=== PATIENT | male | born 1970 | race Caucasian/White ===

== ENCOUNTER 2024-09-08 09:07 | Outpatient (AMB) | payer OTHER, SELFPAY ==
--- OUTSIDE RECORDS SUMMARY | 2024-09-08 09:09 | XMS_ITS | Clinical Summary ---
Author Organization [employer] Address [address] [facility] [address] [place] [address] Care Team Providers Care Incident Response Consultant Name Role Phone Unavailable Primary Care Provider Unavailabl e Allergies Active Allergy Reactions Criticality Noted Date Comments Meloxicam Swelling,Hives 09/16/2022 Sulfa Antibiotics Hives,Unknown,Other 4 Other Reaction(s): Tongue swelling Medications omeprazole (PriLOSEC) [address] capsule Take 20 mg by mouth in the morning. 03/24/2022 Active ciprofloxacin (Cipro) 500 MG tablet Take 500 mg by mouth 2 times daily. 09/12/2022 Active metroNIDAZOLE (Flagyl) 500 MG tablet Take 500 mg by mouth every 12 (twelve) hours. 09/12/2022 Active famotidine (Pepcid) 0.4 mg/mL injection Acti ve fluticasone (Flonase) 50 MCG/ACT nasal spray SPRAY 2 SPRAYS IN EACH NOSTRIL EVERY DAY 08/22/2023 Active atorvastatin (Lipitor) 10 MG tablet Take 1 tablet by mouth Once per day. Active Active Problems Problem Noted Date Diagnosed Date Asthma 02/21/2024 GERD (gastroesophageal reflux disease) History of kidney cancer 02/21/2024 Palpitations 02/21/2024 Primary osteoarthritis of right hip 02/21/2024 Stage 3a chronic kidney disease 04/26/2023 Chronic kidney disease 10/13/2020 Microalbuminuria 10/13/2020 Nephrolithiasis 09/12/2020 S/p nephrectomy 09/12/2020 Encounters Date Type Department Care Team Description 08/30/2024 Telephone [facility] [address] [place] [address] Marisol Ledesma 08/29/2024 Telephone [facility] [address] [place] [address] Marisol Ledesma 08/22/2024 Telephone [facility] [address] [place] [address] Marisol Ledesma from Last 3 Months Social History Tobacco Use Types Packs/Day Years Used Date Smoking Tobacco: Former Cigarettes Smokeless Tobacco: Never Tobacco Cessation:Counseling Given: Not Answered Alcohol Use Standard Drinks/Week Comments Never 0 (1 standard drink = 0.6 oz pur e alcohol) Sex and Gender Information Value Date Recorded Sex Assigned at Male 05/17/2022 10:23 AM EDT Legal Sex Male 10:23 AM EDT Gender Identity Male 05/17/2022 10:23 AM EDT Sexual Orientation Straight 05/17/2022 10 :23 AM EDT Last Filed Vital Signs Vital Sign Reading Time Taken Comments Blood Pressure 130/82 05/07/2024 2:15 PM EDT Pulse - - Temperature - - Respiratory Rate - - Oxygen Saturation - - Inhaled Oxygen Concentration - - Weight - - Height - - Body Mass Index - - Plan of Treatment Upcoming Encounters Date Type Department Care Team (Late st Contact Info) Description 11/21/2024 10:00 AM EDT Office Visit [facility] [address] [place] [address] Marisol Ledesma Health Maintenance Due Date Last Done Comments CT Colonography 1968 Colonoscopy 1968 Colorectal Cancer Screening 1968 Depression Screening 1968 FIT DNA/Cologuard 1968 FIT 1968 FOBT 1968 HIV Screening 1968 Lipid Panel 1968 SDOH Screening 1968 Sigmoidoscopy 1968 Alcohol/Substance Use Screening 1980 Hepatitis C Screening 1986 Hepatitis A Vaccines (1 of 2 - Risk 2-dose series) 1987 Hepatitis B Vaccines (1 of 3 - 19+ 3-dose series) 1987 Pneumococcal Vaccine: 50+ Years (1 of 2 - PCV) 1987 Zoster Vaccines (1 of 2) 2018 DTaP/Tdap/Td Vaccines (2 - T d or Tdap) 04/02/2021 04/02/2011 COVID-19 Vaccine ( - 2023-2 5 season) 2024 Influenza Vaccine (#1) 2024 Dental Oral Exam 11/06/2024 05/07/2024 Dental Prophylaxis 11/21/2024 05/23/2024 Tobacco Screening 05/07/2025 05/07/2024 Dental X-Ray: Bitewings 05/08/2025 05/07/20, 06/16/2023 Dental X-Ray: Full Mouth 05/08/2027 05/07/2024 RSV Patients and Patients Aged 60 years or older (1 - 1-dose 75+ series) 2043 HIB Vaccines Aged Out No longer eligi ble based on patient's age to complete this topic HPV Vaccines Aged Out No longer eligi ble based on patient's age to complete this topic IPV Vaccines Aged Out No longer eligi ble based on patient's age to complete this topic Meningococcal Vaccine Aged Out No julissa rosa eligible based on patient's age to complete this topic RSV under 20 months Aged Out No longe r eligible based on patient's age to complete this topic Rotavirus Vaccines Aged Out No longer eligible based on patient's age to complete this topic Procedures Procedure Name Priority Date/Time Associated Diagnosis Comments PROPHYLAXIS - ADULT Routine 05/23/2024 1 0:00 AM EST Dental calculus Dental plaque INTRAORAL - COMPLETE SERIES OF RADIOGRAPHIC IMAGES Routine 05/07/2024 2:00 PM EDT PERIODIC ORAL EVALUATION - ESTABLISHED PATIENT Routine 05/07/2024 2:00 PM EDT from Last 3 Months or Most Recently Relevant to Health Maintenance Insurance [facility]
--- OUTSIDE RECORDS SUMMARY | 2024-09-08 09:09 | XMS_ITS | Encounter Summary ---
Author Organization [facility] Address [address] [place] [address] Care Team Providers Care Ticket Broker Name Role Phone Dougie Rodriguez MD Primary Care Provider [phone] Reason for Visit * Reason Onset Date Comments Dizziness 09/07/2024 Earache 09/07/2024 Encounter Details Date Type Department Care Team (Late st Contact Info) Description 09/07/2024 Telephone Adult Medicine [facility] [address] [place] [address] Dougie Rodriguez MD [address] [place] [address] Dizziness; Earache Social History Tobacco Use Types Packs/Day Years Used Date Smoking Tobacco: Former Cigarettes 1 25.9 0 1984 - 07/18/2010 Smokeless Tobacco: Never Alcohol Use Standard Drinks/Week Comments No 0 (1 standard drink = 0.6 oz pur e alcohol) Sex and Gender Information Value Date Recorded Sex Assigned at Not on file Legal Sex Male 1:51 AM EST Gender Identity Not on file Sexual Orientation Not on file documented as of this encounter Progress Notes * Rosetta Dominguez RN - 09/07/2024 4:49 PM EST Pt is C/O dizziness for the past 3 days Pt denies any chest pain or SOB, denies any changes in HR, no recent N/V/D, no falls or head trauma,balance has been off walking into [place] , pt has no confusion or changes in speech, no weakness or numbness, has had a headache above his left eye , sinus pain no any changes in vision., dizziness is worse when the pt changes position , room is spinning ear is painful on the left , no drainage , ear is not hot red or swollen , pt has not changed or stopped medication or caffeine intake Advised home care following the dizziness Protocol. RN reinforced telephone consultation and advice. Reviewed with the patient the signs and symptoms to watch for that would require immediate attention. If symptoms change, worsen or increase in intensity, to call back immediately. [place] [facility] [place] * Bridgett Lewis - 09/07/2024 4:41 PM EST Patient call requires triage: Symptoms patient is presenting: Patient right ear has been hurting, patient has been getting dizzy,when patient bends over he gets dizzy as well How long has patient had these symptoms?: 3 days For ALL patients calling to schedule any appointment (routine, sick visit, follow up, consult, etc.) in the outpatient setting please ask the following questions: Do you have fever of higher than 101, sore throat with difficulty swallowing or severe shortness ofbreath? no If YES to any of these above symptoms, send a message to triage and do not book. Red dot. If no, an audio or video visit should be booked. Have you had close contact with someone with Coronavirus in the last 14 days? no Have you traveled abroad? no Have you traveled recently to another state outside of [place], [place], [place], [place], [place], [place], [place]? no o If yes, did you quarantine for 14 days or have a negative covid test? no If yes to any of the above, patient is not to be scheduled in office until after 14 day quarantine or negative covid test. If pain or injury related was it due to an accident at work or from a motor vehicle accident? If yes, date of accident/Injury: No If yes, gather 3rd democrat insurance information [employer] Party Information: not applicable PCP: Dougie Rodriguez MD Payor: [facility] [employer]IANCE MEDICARE / Plan: [facility]LY [facility] CARE / Product Type: *No Product type* / documented in this encounter Plan of Treatment Not on file documented as of this encounter Visit Diagnoses Not on filedocumented in this encounter Care Teams Ticket Broker Relationship Specialty Start Date End Date Dougie Rodriguez MD [address] [place] [id number] PCP - General Internal Medicine 02/22/11 documented as of this encounter
--- OUTSIDE RECORDS SUMMARY | 2024-09-08 09:09 | XMS_ITS | Clinical Summary ---
Author Organization [facility] [address] [place] [address] [place] [address] Phone Care Team Providers Care Director Speech Name Role Phone Dougie Rodriguez MD Primary Care Provider [phone] Allergies Active Allergy Reactions Criticality Noted Date Comments Meloxicam Swelling Low 01/24/2019 Sulfa (Sulfonamide Antibiotics) 04/19/2011 Tongue swelled, and rash on face and arms Medications atorvastatin (LIPITOR) 10 mg tablet TAKE 1 TABLET BY MOUTH EVERY DAY 90 tablet 3 4 Active cholecalciferol (VITAMIN D-3) 50 mcg (2,000 unit) tablet Take 1 tablet (2,000 Units total) by mouth 1 (one) time each day. 4 Active docusate sodium (COLACE) 100 mg capsule Take 1 capsule (100 mg total) by mouth 2 (two) times a day. 4 Active albuterol HFA (PROAIR HFA ; PROVENTIL HFA ; VENTOLIN HFA) 90 mcg/actuation inhaler Inhale 2 puffs by mouth every 4 (four) hours if needed. Active famotidine (PEPCID) 20 mg tablet Take 1 tablet (20 mg total) by mouth 1 (one) time each day. Active pantoprazole (PROTONIX) 20 mg EC tablet TAKE 1 TABLET BY MOUTH EVERY DAY 90 tablet 1 5 Active amoxicillin (AMOXIL) 500 mg tablet TAKE 4 TABLETS BY MOUTH ONCE DIRECTED PRIOR TO DENTAL PROCEDURES 12 tablet 5 Active fluticasone propionate (FLONASE) 50 mcg/actuation nasal spray SPRAY 2 SPRAYS IN EACH NOSTRIL EVERY DAY 48 mL 1 5 Active lidocaine (LIDODERM) 5 % patchIndication s:Chest wall pain, chronic,Encount er for screening for malignant neoplasm of prostate Apply 1 patch topically 1 (one) time each day. Remove & discard patch within 12 hours or as directed by MD. 10 patch 5 Active Active Problems Problem Noted Date Diagnosed Date Cluster headaches 05/31/2024 Palpitations 07/06/2023 Precordial pain 07/06/2023 Pulmonary nodule 07/28/2022 Overview (05/31/2024): 3 mm noncalcified pulmonary nodule in the right lower lobe. Assessment & Plan (07/25/2024 4:40 PM EST): Patient is up-to-date with low-dose CT scan. Last scan was done in December 2023. Will repeat in a year. Patient is notify if he develop any respiratory difficulties. Orders: Basic metabolic panel; Future Colon polyps 12/18/2021 Overview (05/31/2024): Two 4-5mm colonic polyps removed from sigmoid colon on Colonoscopy 12/15/2021. Recommended 5 year repeat. 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 Benign liver cyst 10/06/2017 Overview (05/31/2024): 10/06/2017: 3 tiny [place] [facility] [place] 09/15/2017. 07/22/2022: CT showed 1.6 cm cyst in the left hepatic lobe. There is diffuse fatty infiltration. Dupuytren's contracture of both hands 10/27/2016 Slow transit constipation 10/27/2016 DDD (degenerative disc disease), lumbar 07/27/19 17 Primary osteoarthritis of right hip 07/27/2016 Depression 05/09/2016 Hypercholesterolemia 07/30/2015 Assessment & Plan (07/25/2024 4:40 PM EST): Last LDL 218. I will continue statin. Cardiovascular risk and specific lipid/LDL goals reiterated. Patient is asked to be alert for persistent nausea, abdominal pain, jaundice or pronounced persistent, diffuse muscle pain. Should such symptoms occur. He is to discontinue the drug immediately and let us know. I will recheck Lipid profile today. Orders: Lipid panel with reflex to direct LDL; Future Old disruption of anterior cruciate ligament Diverticulosis 05/27/2011 Diaphragm injury 03/11/2011 Hernia, hiatal 03/11/2011 Overview (05/31/2024): Tiny HH on ba swallow 2001; no HH on ugi 2015. Asthma 02/22/2011 Assessment & Plan (07/25/2024 4:40 PM EST): Asthma is stable. Patient is to use inhaler as needed. He is to follow-up if he start using rescue inhaler daily or more than 3 times a week. Encounters Date Type Department Care Team Description 09/07/2024 Telephone Adult Medicine [address] [address] Dougie Rodriguez MD Dizziness; Earache 07/25/2024 4:00 PM EST Office Visit Adult Medicine [address] [phone] Juliann Ricardo NP Chest wall pain, chronic (Primary Dx); Pulmonary nodule; Mild asthma without complication, unspecified whether persistent; Hypercholesterolemia; Encounter for screening for cardiovascular disorders; Encounter for screening for malignant neoplasm of prostate from Last 3 Months Immunizations Name Administration Dates Next Due Tdap Tetanus diptheria acell ular pertussis (Boostrix; Adacel) 7yo and older 04/02/2011 Surgical History Surgery Date Site/Laterality Comments OTHER SURGICAL HISTORY PROCEDURE: ---- OTHER ----; COMMENT: cyst rt hand OTHER SURGICAL HISTORY 08/15/2001 PROCEDURE: RADIOLOGIC EXAM ESOPHAGUS SINGLE CONTRAST STUDY; COMMENT: Small axial hiatal hernia. Small amount of GERD. COLONOSCOPY 04/19/2011 PROCEDURE: HISTORICAL COLONOSCOPY; COMMENT: tics and hemorrhoids; repeat in ten yrs OTHER SURGICAL HISTORY PROCEDURE: [place] MASTECTOMY GYNECOMASTIA UPPER GASTROINTESTINAL ENDOSCOPY 10/20/2017 PROCEDURE: [place] UPPER GI ENDOSCOPY PERFORMED; COMMENT: Esophagoscopy only; small hiatal hernia; soft palate lesions ? 2 ; moderate sedation was inadequate to examine the stomach and duodenum, currently on treatment with omeprazole. COLONOSCOPY 12/26/2019 PROCEDURE: HISTORICAL COLONOSCOPY; COMMENT: 6 mm rectosigmoid junction polyp: Tubular adenoma. NEPHRECTOMY 03/17/2020 Left PROCEDURE: HISTORICAL NEPHRECTOMY; COMMENT: for cancer Medical History Medical History Date Comments Asthma DX:Asthma Cluster headaches DX:Cluster hea daches Diverticulosis 05/27/2011 DX:Diverticulosi s Hypercholesterolemia 07/30/2015 DX:Hypercho lesterolemia Depression DX:Depression DDD (degenerative disc disease), lumbar DX:DDD (degenerative disc disease), lumbar Degenerative joint disease (DJD) of hip DX:Degenerative joint disease (DJD) of hip Benign liver cyst 10/06/2017 DX:Benign live r cyst; COMMENT: 10/06/2017: 3 tiny liver [place]d [place] [facility] [place] and 09/15/2017. Failed moderate sedation during procedure 10/21/19 18 DX:Failed moderate sedation during procedure; COMMENT: 10/20/2017: Moderate sedation was not adequate for upper GI endoscopy today. 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) Family History Medical History Relation Name Comments Crohn's disease Aunt maternal Lung cancer Father Other: Raynaud's Father Lymphoma Maternal Grandfather Heart attack Maternal Grandmother in her 70' Other: Colectomy Mother secondary t o recurrent diverticulitis Relation Name Status Comments Aunt Father Alive lipids Maternal Grandfather Maternal Grandmother Mother Alive Diverticulitis s/p colostomy,HTN Social History Tobacco Use Types Packs/Day Years [...] on file Sexual Orientation Not on file Obstetrics History Last Filed Vital Signs Vital Sign Reading Time Taken Comments Blood Pressure 112/80 07/25/2024 4:00 PM EST Pulse 97 07/25/2024 4:00 PM EST Temperature 36.3 ??C (97.3 ??F) 07/25/2024 4:00 PM ES T Respiratory Rate 16 07/25/2024 4:00 PM EST Oxygen Saturation 96% 07/25/2024 4:00 PM EST Inhaled Oxygen Concentration - - Weight 94.3 kg (208 lb) 07/25/2024 4:00 PM EST Height 180.3 cm (5' 11 ) 07/25/2024 4:00 PM EST Body Mass Index 29.01 07/25/2024 4:00 PM EST Plan of Treatment Health Maintenance Due Date Last Done Comments Pneumococcal Vaccine: 50+ Years (1 of 2 - PCV) 1987 Zoster Vaccines (1 of 2) 1987 Medicare Annual Wellness Visit 06/26/2022 Social Influencers of Health Screening 06/26/2022 Depression Screening 11/30/2024 12/01/2023 Lung Cancer Screening (Low Dose CT) 12/29/2024 12/30/2023 DTaP,Tdap,and Td Vaccines (3 - Td or Tdap) 03/05/2027 03/05/2017, 04/02/2011 Cholesterol Screening (Lipid Panel) 07/25/2029 07/25/2024, 11/29/2023, 11/29/2023 Colorectal Cancer Screening: Colonoscopy 12/16/2031 12/15/2021 HIV Screening Completed 07/07/2017 Hepatitis C Screening Completed 07/07/2017 COVID-19 Vaccine Discontinued HIB Vaccines Aged Out No longer eligi ble based on patient's age to complete this topic HPV Vaccines Aged Out No longer eligi ble based on patient's age to complete this topic Hepatitis A Vaccines Aged Out No long er eligible based on patient's age to complete this topic Hepatitis B Vaccines Discontinued IPV Vaccines Aged Out No longer eligi ble based on patient's age to complete this topic Influenza Vaccine Discontinued MMR Vaccines Aged Out No longer eligi ble based on patient's age to complete this topic Meningococcal ACWY Vaccine Aged Out N o longer eligible based on patient's age to complete this topic Meningococcal B Vacine Aged Out No lo nger eligible based on patient's age to complete this topic Pneumococcal Vaccine: Pediatrics (0 to 5 Years) and At-Risk Patients (6 to 64 Years) Discontinued RSV Immunization Patients Under 20 months Aged Out No longer eligible based on patient's age to complete this topic Varicella Vaccines Aged Out No longer eligible based on patient's age to complete this topic Procedures Procedure Name Priority Date/Time Associated Diagnosis Comments BASIC METABOLIC PANEL Routine 07/25/2024 4:34 PM EST Pulmonary nodule Mild asthma without complication, unspecified whether persistent Chest wall pain, chronic Encounter for screening for malignant neoplasm of prostate Encounter for screening for cardiovascular disorders LIPID PANEL WITH REFLEX TO DIRECT LDL Routine 07/25/2024 4:34 PM EST Encounter for screening for cardiovascular disorders PROSTATE SPECIFIC ANTIGEN SCREEN Routine 07/25/2024 4:34 PM EST Encounter for screening for malignant neoplasm of prostate DEPRESSION SCREENING Routine 12/01/2023 COLONOSCOPY Routine 12/15/2021 HEPATITIS C SCREENING Routine 07/07/2017 HIV SCREENING Routine 07/07/2017 from Last 3 Months or Most Recently Relevant to Health Maintenance Results * Prostate specific antigen screen (07/25/2024 4:34 PM EST) PSA 0.32 0.00 - 4.00 ng/mL LAB CHEMISTRY METHOD 07/25/2024 7:[address] [facility] Blood Venous blood specimen / Unknown Venipuncture / Unknown 07/25/2024 4:34 PM EST 07/25/2024 4:[address] [facility] - 07/25/2024 7:08 PM EST The Siemens Advia Centaur Chemiluminescent Immunoassay is used. Results obtained with different assay methods or kits cannot be used interchangeably. Results cannot be interpreted as absolute evidence of the presence or absence of malignant disease. Juliann Ricardo STRADDLE BUG DRIVER LAB BLOOD ORDERABLES Final R esult [facility] [address] [place] [address], [place] [phone] * (ABNORMAL) Lipid panel with reflex to direct LDL (07/25/2024 4:34 PM EST) Cholesterol 206(H) 0 - 200 mg/dL LAB CHEMISTRY METHOD 07/25/2024 7:01 PM [facility] Triglycerides 144 0 - 150 mg/dL LAB CHEMISTRY METHOD 07/25/2024 7:01 PM [facility] HDL 49 >=40 mg/dL LAB CHEMISTRY METHOD 07/25/2024 7:01 PM [facility] LDL Calculated 128(H) 0 - 100 mg/dL LAB CHEMISTRY METHOD 07/25/2024 7:01 PM [facility] VLDL Cholesterol Rocael 28.8 mg/dL LAB CHEMISTRY METHOD 07/25/2024 7:01 PM [facility] Non HDL Chol. (LDL+VLDL) 157(H) <145 mg/dL LAB CHEMISTRY METHOD 07/25/2024 7:01 PM [facility] Chol/HDL Ratio 4.2 0.0 - 4.4 LAB CHEMISTRY METHOD 07/25/2024 7:01 PM [facility] Blood Venous blood specimen / Unknown Venipuncture / Unknown 07/25/2024 4:34 PM EST 07/25/2024 4:34 PM EST Juliann Ricardo NP LAB BLOOD ORDERABLES Final R esult [facility] [address] [place] [address], * (ABNORMAL) Basic metabolic panel (07/25/2024 4:34 PM EST) Sodium 137 133 - 145 mmol/L LAB CHEMISTRY METHOD 07/25/2024 7:00 PM [facility] Potassium 4.3 3.5 - 5.5 mmol/L LAB CHEMISTRY METHOD 07/25/2024 7:00 PM [facility] Chloride 105 96 - 110 mmol/L LAB CHEMISTRY METHOD 07/25/2024 7:00 PM [facility] CO2 28 21 - 32 mmol/L LAB CHEMISTRY METHOD 07/25/2024 7:00 PM [facility] Anion Gap 4 3 - 11 LAB CHEMISTRY METHOD 07/25/2024 7:00 PM [facility] Glucose 92 70 - 100 mg/dL LAB CHEMISTRY METHOD 07/25/2024 7:00 PM [facility] BUN 17 5 - 25 mg/dL LAB CHEMISTRY METHOD 07/25/2024 7:00 PM [facility] Creatinine 1.40(H) 0.70 - 1.30 mg/dL LAB CHEMISTRY METHOD 07/25/2024 7:00 PM [facility] eGFR 59(L) >=60 mL/min/1. 73m2 LAB CHEMISTRY METHOD 07/25/2024 7:00 PM [facility] Comment:Calculation based on the??Chronic Kidney Disease Epidemiology Collaboration (CKD-EPI) equation refit??without adjustment for race. BUN/Creatinine Ratio 12.1 LAB CHEMISTRY METHOD 07/25/2024 7:00 PM [facility] Calcium 9.7 8.5 - 10.5 mg/dL LAB CHEMISTRY METHOD 07/25/2024 7:[address] [facility] Blood Venous blood specimen / Unknown Venipuncture / Unknown 07/25/2024 4:34 PM EST 07/25/2024 4:34 PM EST Juliann Ricardo STRADDLE BUG DRIVER LAB BLOOD ORDERABLES Final R esult [facility] [address] [place] [address], [place] [phone] * Depression Screening (12/01/2023) [facility] Depression Screening abstracted Historical Provider HEALTH MAINTENANCE Final Result * Colonoscopy (12/15/2021) [facility] Colonoscopy no interpretation , abstracted Anatomical Region Laterality Modality Other Historical Provider HEALTH MAINTENANCE Final Result * HIV Screening (07/07/2017) [facility] HIV Screening abstracted Historical Provider HEALTH MAINTENANCE Final Result * Hepatitis C Screening (07/07/2017) [facility] Hepatitis C Screening abstracted Historical Provider HEALTH MAINTENANCE Final Result from Last 3 Months or Most Recently Relevant to Health Maintenance Insurance [facility] [employer] MEDICARE Member Subscriber Plan / Payer (Ef fective 2023-Present) Name:Cristo Boyer Relation to Subscriber:Self Name:Cristo Boyer Payer ID:[id number] Group ID:[id number] Type:Not on file Address: [place] [address] [address] [id number] Care Teams Director Speech Relationship Specialty Start Date End Date Dougie Rodriguez MD [address] [place] [phone] PCP - General Internal Medicine 02/22/11
--- OUTSIDE RECORDS SUMMARY | 2024-09-08 09:09 | XMS_ITS | Encounter Summary ---
Author Organization [employer] Address [address] [facility] 7t [place] [address] Care Team Providers Care Marketing Analytics Specialist Name Role Phone Unavailable Primary Care Provider Unavailabl e Reason for Visit * Reason Onset Date Comments medication 07/01/2023 Encounter Details Date Type Department Care Team (Late st Contact Info) Description 07/01/2023 Telephone [facility] ADULT DENTAL [address] [place] [address] Luis Nino DDS [address] [place] [address] medication Social History Tobacco Use Types Packs/Day Years Used Date Smoking Tobacco: Every Day Cigarettes Smokeless Tobacco: Never Sex and Gender Information Value Date Recorded Sex Assigned at Male 05/17/2022 10:23 AM EDT Legal Sex Male 10:23 AM EDT Gender Identity Male 05/17/2022 10:23 AM EDT Sexual Orientation Straight 05/17/2022 10 :23 AM EDT documented as of this encounter Miscellaneous Notes * Telephone Encounter - Jenise Warner - 07/01/2023 11:25 AM EST Patient called in stating that he is experiencing pain in RCT done on 06/29. He states he was advised that he may feel pain and always the possibility of infection. Is requesting Augmentin to be sentto pharmacy. Can something be sent?? documented in this encounter Plan of Treatment Upcoming Encounters Date Type Department Care Team (Late Contact Info) Description 11/21/2024 10:00 AM EDT Office Visit [facility] ADULT DENTAL [address] [place] [address] Marisol Ledesma documented as of this encounter Visit Diagnoses Not on filedocumented in this encounter
--- OUTSIDE RECORDS SUMMARY | 2024-09-08 09:09 | XMS_ITS | Encounter Summary ---
Author Organization [employer] Address [address] [facility] [address] 7[address] [place] [address] Care Team Providers Care Central Service Tech Name Role Phone Unavailable Primary Care Provider Unavailabl e Encounter Details Date Type Department Care Team (Late st Contact Info) Description 08/03/2023 Abstract [facility] ADULT DENTAL [address] [place] [address] Luis Nino DDS [address] [place], [place] [phone] Social History Tobacco Use Types Packs/Day Years Used Date Smoking Tobacco: Every Day Cigarettes Smokeless Tobacco: Never Sex and Gender Information Value Date Recorded Sex Assigned at Male 05/17/2022 10:23 AM EDT Legal Sex Male 10:23 AM EDT Gender Identity Male 05/17/2022 10:23 AM EDT Sexual Orientation Straight 05/17/2022 10 :23 AM EDT documented as of this encounter Plan of Treatment Upcoming Encounters Date Type Department Care Team (Late st Contact Info) Description 11/21/2024 10:00 AM EDT Office Visit [facility] ADULT DENTAL [address] [place] [address] Marisol Ledesma documented as of this encounter Visit Diagnoses Not on filedocumented in this encounter
--- OUTSIDE RECORDS SUMMARY | 2024-09-08 09:09 | XMS_ITS | Encounter Summary ---
Author Organization [employer] Address [address] [facility] 7t [place] [address] Care Team Providers Care Traffic Administrator Name Role Phone Unavailable Primary Care Provider Unavailabl e Reason for Visit * Reason Onset Date Comments Med Refill 06/13/2023 Encounter Details Date Type Department Care Team ([facility] st Contact Info) Description 06/13/2023 Telephone [facility] ADULT DENTAL [address] [place] [address] Luis Nino DDS [address] [place], [place] [phone] Med Refill Social History Tobacco Use Types Packs/Day Years [...] * Telephone Encounter - Jenise Warner - 06/13/2023 9:49 AM EST Sending this request to Dr. Moore due to it being RCT treatment with Dr. Nino but he is not heretoday DR Patient is upset because they are in pain and swollen and there was an appt that they stated was going to be scheduled for them last Tuesday and states they never got a call. There is nothing for him to be seen as an emergency today and I did offer spot for tomorrow for ER with Greg that is open but he is having surgery and needs to go to an appt that he has schedule tomorrow at the same time. He stated that he had spoken to someone in the office and that he was told that if he needed an antibiotic sent to the pharmacy that the office would take care of it right away. He would like something set to the pharmacy today due to the pain and swelling. He stated that it has to do with a RCT that was started with Dr. Nino and never finished. documented in this encounter Plan of Treatment Upcoming Encounters Date Type Department Care Team (Late st Contact Info) Description 11/21/2024 10:00 AM EDT Office Visit [facility] ADULT DENTAL [address] [place] [address] Marisol Ledesma documented as of this encounter Visit Diagnoses Not on filedocumented in this encounter
--- OUTSIDE RECORDS SUMMARY | 2024-09-08 09:10 | XMS_ITS | Encounter Summary ---
Author Organization [employer] Address [address] [place] [address] 7t [place] [address] Care Team Providers Care Speech Correction Assistant Name Role Phone Unavailable Primary Care Provider Unavailabl e Encounter Details Date Type Department Care Team (Late st Contact Info) Description 08/30/2024 Telephone [facility] ADULT DENTAL [address] [place] [address] Mariosl Ledesma Social History Tobacco Use Types Packs/Day Years Used Date Smoking Tobacco: Former Cigarettes Smokeless Tobacco: Never Alcohol Use Standard Drinks/Week Comments Never 0 (1 standard drink = 0.6 oz pur e alcohol) Sex and Gender Information Value Date Recorded Sex Assigned at Male 05/17/2022 10:23 AM EDT Legal Sex Male 10:23 AM EDT Gender Identity Male 05/17/2022 10:23 AM EDT Sexual Orientation Straight 05/17/2022 10 :23 AM EDT documented as of this encounter Miscellaneous Notes * Telephone Encounter - Harriett Smith - 08/30/2024 12:54 PM EST Called patient to schedule a deep cleaning appointment but there was no answer so I left a voicemail. documented in this encounter Plan of Treatment Upcoming Encounters Date Type Department Care Team (Late st Contact Info) Description 11/21/2024 10:00 AM EDT Office Visit [facility] ADULT DENTAL [address] [place] [address] Marisol Ledesma documented as of this encounter Visit Diagnoses Not on filedocumented in this encounter
--- OUTSIDE RECORDS SUMMARY | 2024-09-08 09:10 | XMS_ITS | Encounter Summary ---
Author Organization [employer] Address [address] [facility] 7t [place] [address] Care Team Providers Care Stockroom Supervisor Name Role Phone Unavailable Primary Care Provider Unavailabl e Encounter Details Date Type Department Care Team (Late st Contact Info) Description 08/29/2024 Telephone [facility] ADULT DENTAL [address] [place] [address] Marisol Ledesma Social History Tobacco Use Types Packs/Day [...] * Telephone Encounter - Harriett Smith - 08/29/2024 11:27 AM EST Called to schedule a deep cleaning but there was no answer so I left a voicemail. documented in this encounter Plan of Treatment Upcoming Encounters Date Type Department Care Team (Late st Contact Info) Description 11/21/2024 10:00 AM EDT Office Visit [facility] ADULT DENTAL [address] [place] [address] Marisol Ledesma documented as of this encounter Visit Diagnoses Not on filedocumented in this encounter
--- OUTSIDE RECORDS SUMMARY | 2024-09-08 09:10 | XMS_ITS | Data Portability ---
Author Organization [place] - [facility], [facility] Address [address] [place] [address] Assessment Encounter Date Assessment Date Assessment LastModified by Organization Details LastModified Time 10/12/2023 10/12/2023 Assessment: Wound check performed of surgical site with noted skin breakdown with potential beginning stages of dehiscence but benign of infection signs and sx. Good gait mechanics using single crutch. Plan: Strengthen to erick, balance training. [email or web address] Not available 10/12/2023 13:03:56 10/14/2023 10/14/2023 Assessment: Pt with improving gait mechanics. Progressed functional strengthening to include mini squats which pt erick well. Plan: Strengthen to erick, balance training. [email or web address] Not available 10/14/2023 09:15:00 10/17/2023 10/17/2023 Ambulates well short distances w/o ad. challenged w/ BKFO against light resistance. Stair mechanics improved on 6 inch step. Continues to make mobility and strength gains. Plan: Strengthen to erick, balance training. [email or web address] Not available 10/17/2023 19:49:05 10/21/2023 10/21/2023 Assessment: Pt with good gait mechanics using SPC. Good tolerance to increased resistance with hip strengthening. Plan: Strengthen to erick, balance training. [email or web address] Not available 10/21/2023 10:05:07 Plan of Treatment Reminders Order Date Submit Date Provider Last Modified By Organization Details Last Modified Time Details Appointments None record ed. Lab None record ed. Referral None record ed. Procedures None record ed. Surgeries None record ed. Imaging None record ed. Medication Orders None record ed. Patient TargetsNo targets recorded. Patient InstructionsNo instructions recorded. Reason for Referral None Reported. Results Created Date Observation Date Name Description Value Unit Range Abnormal Flag Note LastModifiedBy Organization Detail LastModifiedTime 10/11/19 24 10/11/2023 SEDIM ENTAT ION RATE- WESTE RGREN sedimentatio n rate-westerg renetta 9 mm/HR 0-15 Not Available [address], [address], 10/11/2023 20:06:32 10/11/19 24 10/11/2023 C-LYNN CTIVE PROTE IN, QUANT C-reactive protein, quant 1.0 mg/dL 0-0.5 above high normal Not Available [address], [address], 10/11/2023 20:06:33 03/16/20 24 09/07/2023 imagi ng/di agnos tic resul t No observ ation record ed. [email or web address] Not Available 02/17 04:48:18 03/16/20 24 09/07/2023 imagi ng/di agnos tic resul t No observ ation record ed. [email or web address] Not Available 02/17 04:48:19 Result Notes None recorded. Procedures Surgical History Date Name Laterality Status Provider Name and Address Organization Details Recorded Time 4 09775 Therapeutic Exercise (1:1) completed Mina Marcano PTA [address], [place], [address], [facility] 10/21/2023 09:28:51 4 55380 Therapeutic Exercise (1:1) completed Mina Whelan DPT [address], [place], [address], [facility] 10/17/2023 19:30:46 4 45329 Therapeutic Exercise (1:1) completed Mina Marcano PTA [address], [place], [address], [facility] 10/14/2023 09:15:14 4 63416 Therapeutic Exercise (1:1) completed Mina Marcano PTA [address], [place], [address], [facility] 10/12/2023 11:47:57 4 97252 Therapeutic Exercise (1:1) completed Mina Marcano PTA [address], [place], [address], [facility] 10/05/2023 12:31:46 4 95308 Therapeutic Exercise (1:1) completed Mina Marcano PTA [address], [place], [address], [facility] 10/03/2023 13:30:06 Imaging Results Imaging Date Name Status LastModified by Organiz ation Details LastModified Time 09/07/2023 imaging/diag nostic result completed Information not available 03/16/2024 04:48:18 09/07/2023 imaging/diag nostic result completed Information not available 03/16/2024 04:48:19 Procedure Notes None recorded. Medical Equipment None Reported. Allergies Allergen ID Allergen Name Allergen Category Reaction Reaction Severity Criticality Documentation Date Start Date Code Code System Note Provider Name and Address Organization Details Recorded Time 964199 meloxicam medicatio n Not available Not available Not available 10/12/2023 51415 RxNorm KAYLIA L'HEUREUX [facility], [facility] 14:00:19 41165 Substance with sulfonami de structure and antibacte rial mechanism of action (substanc e) medicatio n Not available Not available Not available 09/19/20232019 19755 8003 SNOMED Not Available [employer] 14:47:22 Medications Name Sig Start Date Stop Date Status Note LastModified by Organization Details LastModified Time amoxicillin 500 mg capsule TAKE 4 CAPSULES BY MOUTH 1 HOUR PRIOR TO DENTAL WORK active Not Available Not Available No t Available clindamycin HCl 300 mg capsule TAKE 1 CAPSULE BY MOUTH 4 TIMES A DAY FOR 7 DAYS 10/11 completed Not Available Not Available Not Available atorvastati n 10 mg tablet TAKE 1 TABLET BY MOUTH EVERY DAY active Not Available Not Available No t Available ondansetron HCl 4 mg tablet TAKE 1 TABLET BY MOUTH EVERY 8 HOURS NEEDED FOR NAUSEA AND VOMITING 10/11 completed Not Available Not Available Not Available tramadol 50 mg tablet TAKE 1 TO 2 TABLETS BY MOUTH EVERY 6 HOURS NEEDED FOR MILD PAIN. DO NOT EXCEED 8 TABLETS (400MG) PER DAY. 10/11 completed Not Available Not Available Not Available acetaminoph en ER 650 mg tablet,exte nded release TAKE 1 TABLET BY MOUTH 4 TIMES A DAY FOR 7 DAYS active Not Available Not Available No t Available pantoprazol e 20 mg tablet,emre yed release TAKE 1 TABLET BY MOUTH EVERY DAY 10/11 completed Not Available Not Available Not Available docusate sodium 100 mg capsule TAKE 1 CAPSULE BY MOUTH 2 TIMES DAILY FOR 30 DAYS. active Not Available Not Available No t Available omeprazole 20 mg capsule,del ayed release TAKE 1 CAPSULE BY MOUTH EVERY DAY 10/11 completed Not Available Not Available Not Available methylpredn isolone 4 mg tablets in a dose pack TAKE DIRECTED ON PACKAGE 10/11 completed Not Available Not Available Not Available hydromorpho ne 4 mg tablet TAKE 1/2 TO 1 TABLET BY MOUTH EVERY 4 HOURS NEEDED FOR SEVERE PAIN 10/11 completed Not Available Not Available Not Available ondansetron 4 mg disintegrat ing tablet TAKE 1 TABLET BY MOUTH EVERY 8 HOURS NEEDED FOR NAUSEA 10/11 completed Not Available Not Available Not Available fluticasone propionate 50 mcg/actuati on nasal spray,suspe nsion SPRAY 2 SPRAYS IN EACH NOSTRIL EVERY DAY active Not Available Not Available No t Available amoxicillin 875 mg-potassiu m clavulanate 125 mg tablet TAKE 1 TABLET BY MOUTH TWICE A DAY FOR 7 DAYS 10/11 completed Not Available Not Available Not Available oxycodone 5 mg tablet TAKE 1 TABLET (5MG) BY MOUTH EVERY 6 HOURS NEEDED FOR SEVERE PAIN FOR UP TO 3 DAYS 10/11 completed Not Available Not Available Not Available famotidine active Not Available Not Av ailable Not Available cholecalcif javier (vitamin D3) 50 mcg (2,000 unit) tablet TAKE 1 TABLET BY MOUTH EVERY DAY active Not Available Not Available No t Available Eliquis 2.5 mg tablet TAKE 1 TABLET BY MOUTH TWO TIMES A DAY active Not Available Not Available No t Available Vitals Date Recorded Body height Body mass index (BMI) Body weight Provider Name and Address Organization Details Last Updated DateTime 10/12/2023 177.8 cm 29.6 kg/m2 28276.03 g PRESTON ESCOBAR [facility] 10/12/2023 13:59:56 Social History Question Answer Notes LastModified by Organizat ion Details LastModified Time Tobacco Smoking Status Never Smoker PRESTON IvonCHETJenna romero [facility] 10/12/2023 14:01:53 What Is Your Level Of Alcohol Consumption? None Information not available 10/12/2023 Which Illicit Or Recreational Drugs Have You Used? Marijuana Information not available 10/12/2023 What Is Your Relationship Status? Single Information not available 10/12/2023 Do You Use Any Illicit Or Recreational Drugs? Yes Information not available 10/12/2023 Do You Or Have You Ever Used Any Other Forms Of Tobacco Or Nicotine? No Information not available 10/12/2023 Sex: Unknown Functional Status None recorded. Mental Status None recorded. Family History Nothing Reported. Medical History Condition Response Allergies/Hayfever Y Coronary Artery Disease N Anxiety/Depression Y Emphysema N Thyroid Problems N COPD N Pacemaker N Kidney/Bladder Problems N Anemia N Vascular Disease N Gastrointestinal Disease N Heart Attack (MS) N Diabetes N Autoimmune disease N Bleeding Disorder N Orthotics N Arthritis Y Seizures/Epilepsy N Blood Clot N AIDS/HIV N Congestive Heart Failure (CHF) N Acid Reflux (GERD) Y Cancer Y Stroke N Asthma Y Peripheral Vascular Disease N Sleep Apnea N Hepatitis N Heart Disease N Rheumatoid Arthritis N Arrhythmia N Pulmonary Embolism N Fibromyalgia N Hypertension N Osteoporosis N Past Encounters Encounter ID Performer Location Encounter Start Date Encounter Closed Date Diagnosis/Indication Diagnosis SNOMED-CT Code Diagnosis ICD10 Code Diagnosis Note [id number] Eleuterio Morrell, PT [facility] [address] [place] [address] 10/03/2023 12:16:06 10/03/2023 13:30:45 Aftercare 707263067 Z47.1 History of right hip replacement 7868526409 533151 Z96.693 [id number] TRISTIAN DueñasT [facility] [address] [place] [address] 10/05/2023 12:29:48 10/05/2023 14:43:38 Aftercare 051384150 Z47.1 History of right hip replacement 8009791259 157332 Z96.776 [id number] Montana Mcwilliams PA-C [facility] [address] [place] [address] 10/12/2023 13:18:34 10/12/2023 15:13:17 History of right hip replacement 9841170529 485350 Z96.641 Aftercare 766752282 Z51. 89 [id number] TRISTIAN DueñasT [facility] [address] [place] [address] 10/12/2023 12:18:40 10/12/2023 13:58:34 Aftercare 646634079 Z47.1 History of right hip replacement 1301820338 529070 Z96.603 [id number] Lynette Wang DPT [facility] [address] [place] [address] 10/14/2023 08:18:34 10/14/2023 10:05:57 Aftercare 446468003 Z47.1 History of right hip replacement 0166490798 749110 Z96.031 [id number] Mina Whelan DPT [facility] [address] [place] [address] 10/17/2023 09:41:33 10/17/2023 10:34:27 Aftercare 934132285 Z47.1 History of right hip replacement 4301288220 529671 Z96.142 [id number] Lynette Wang DPT [facility] [address] [place] [address] 10/21/2023 09:16:01 10/21/2023 10:17:57 Aftercare 773001475 Z47.1 History of right hip replacement 0662350561 454955 Z96.641 Health Concerns Section Related Observation LastModified by Organization Detai ls LastModified Time None Recorded Concern Status LastModified by Organization Details LastModified Time None Recorded Advance Directives Directive None Recorded Payers Encounter Date Sequence Insurance Name Policy Number Policy Mccullough Covered Member ID Mccullough Member ID Guarantor Name 10/12/2023 1 [facility] - DOS ON OR AFTER 2022 - ONE CARE (MEDICARE REPLACEMENT/AD VANTAGE - HMO) Cristo Carrillo Merlin [id number] Cristo Carrillo Merlin 10/12/2023 1 [facility] - DOS ON OR AFTER 2022 - ONE CARE (MEDICARE REPLACEMENT/AD VANTAGE - HMO) Cristo Carrillo Merlin [id number] Cristo Carrillo Mrelin 10/14/2023 1 [facility] - DOS ON OR AFTER 2022 - CARE (MEDICARE REPLACEMENT/AD VANTAGE - HMO) Cristo Gerardo Boyer [id number] Cristo Carrillo Merlin 10/17/2023 1 [facility] - DOS ON OR AFTER 2022 - CARE (MEDICARE REPLACEMENT/AD VANTAGE - HMO) Cristo Boyer [id number] Cristo Boyer 10/21/2023 1 [facility] - DOS ON OR AFTER 2022 - CARE (MEDICARE REPLACEMENT/AD VANTAGE - HMO) Cristo Boyer [id number] Cristo Boyer Notes Date Note Type Note Provider Name and Address Organization Details Recorded Time 10/12/2023 text/html I am seeing the patient today under the supervision of Dr. Silva who was available but did not see the patient. HPI: Patient is approximately 5 weeks s/p right PATRICIA performed by Dr. Ramirez. Presents today complaining of right hip pain. Is here today for an incision check. Has noted some erythema and irritation over the proximal aspect of the incision. No expressible drainage however has noticed granulation tissue. Has been using gentamicin ointment which seems to be helping with healing. Has been using dry sterile dressing otherwise.. Infection labs were ordered prior to the visit and reveal an ESR of 9, CRP of 1.1. Concern for infection is low at this time. PMH/PSH/MEDS/ALL/FM H/SOC HX/ROS all reviewed in detail per my medical intake sheet. ROS: the patient denies fevers or chills Exam: Vitals signs as noted. Alert and oriented x3. Appears well and in no acute distress. Extremities: Incision is well-healing with some granulation tissue about the proximal aspect of the incision where there is slight opening. No expressible drainage. No surrounding erythema. No visible suture.. Calves are soft and nontender. No evidence of DVT. No lower extremity edema. Neurovascular status at baseline. No tenderness to palpation about the hip. No pain with range of motion of the hip in flexion, internal and external rotation. Negative straight leg raise. Assessment: The patient is 5 weeks s/p right PATRICIA. suture abscess healing nicely Plan: I explained the nature of the diagnosis with the patient and its treatment options both conservative and surgical. Recommended continuation of dry sterile dressings. The patient will follow-up with us as scheduled with Dr. Ramirez in approximately 1 week. Discuss concerning signs for infection and the patient will contact the office if he experiences these.The patient understands and agrees with the plan. They know to call if they have any further questions or concerns regarding their symptoms, or to follow up sooner if needed. Montana Mcwilliams PA-C [address], [place], [address], [facility] 10/12/2023 15:02:49 10/12/2023 text/html Pt reports he de dios s a little area of his scar he thinks may be the beginning of an infection, has been applying an antiseptic cream to the area which seems to be helping. Mina Marcano PTA [address], [place], [address], [facility] 10/12/2023 13:05:17 10/14/2023 text/html Pt reports the P A took a stitch out, no concerns of infection. Mina Marcano PTA [address], [place], [address], [facility] 10/14/2023 09:15:42 10/17/2023 text/html Pt reports R hip has been doing well. Notes having to ambulate w/ crutch or cane due to R knee px. Mina Whelan DPT [address], [place], [address], [facility] 10/17/2023 19:51:30 10/21/2023 text/html Pt reports he is feeling good. Mina Marcano, SR. PRICING ANALYST [address] [facility] [address], [place], [address], [facility] [place] 10/21/2023 10:05:35
--- OUTSIDE RECORDS SUMMARY | 2024-09-08 09:10 | XMS_ITS | Encounter Summary ---
Author Organization [employer] Address [address] [facility] 7t [place] [address] Care Team Providers Care Thread Checker Name Role Phone Unavailable Primary Care Provider Unavailabl e Encounter Details Date Type Department Care Team (Latest Contact Info) Description 03/10/2022 Abstract [facility] CONVERSIONS Dental, Provider, DDS Social History Tobacco Use Types Packs/Day Years Used Date Smoking Tobacco: Never Assessed Sex and Gender Information Value Date Recorded Sex Assigned at Male 05/17/2022 10:23 AM EDT Legal Sex Male 10:23 AM EDT Gender Identity Male 05/17/2022 10:23 AM EDT Sexual Orientation Straight 05/17/2022 10 :23 AM EDT documented as of this encounter Plan of Treatment Upcoming Encounters Date Type Department Care Team (Late st Contact Info) Description 11/21/2024 10:00 AM EDT Office Visit [facility] ADULT DENTAL [address] [place] [address] Marisol Ledesma documented as of this encounter Visit Diagnoses Not on filedocumented in this encounter
--- OUTSIDE RECORDS SUMMARY | 2024-09-08 09:10 | XMS_ITS | Encounter Summary ---
Author Organization [employer] Address [address] [facility] 7t [place] [address] Care Team Providers Care Gasoline Finisher Name Role Phone Unavailable Primary Care Provider Unavailabl e Encounter Details Date Type Department Care Team (Latest Contact Info) Description 08/15/2018 Abstract [facility] CONVERSIONS Dental, Provider, DDS Social History Tobacco [...] Description 11/21/2024 10:00 AM EDT Office Visit [facility] ADULT DENTAL [address] [place] [address] Marisol Ledesma documented as of this encounter Visit Diagnoses Not on filedocumented in this encounter
--- OUTSIDE RECORDS SUMMARY | 2024-09-08 09:10 | XMS_ITS | Encounter Summary ---
Author Organization [employer] Address [address] [facility] 7t [place] [address] Care Team Providers Care Insurance Healthcare Representative Name Role Phone Unavailable Primary Care Provider Unavailabl e Reason for Visit * Reason Onset Date Comments NDX lab update 04/19/2024 Encounter Details Date Type Department Care Team ([facility] Contact Info) Description 04/19/2024 Telephone [facility] ADULT DENTAL [address] [place], [place] [phone] Luis Nino DDS [address] [place], [place] [phone] NDX lab update Social History Tobacco Use Types Packs/Day Years [...] * Telephone Encounter - Jenise Warner - 04/19/2024 9:45 AM EDT Message for Dr. Nino NDX lab in [place] called in to report that case was requested to be returned to office for 04/25. Lab will need more time. Delivery date expected to be for 04/30. documented in this encounter Plan of Treatment Upcoming Encounters Date Type Department Care Team (Late Contact Info) Description 11/21/2024 10:00 AM EDT Office Visit [facility] ADULT DENTAL [address] [place] [address] Marisol Ledesma documented as of this encounter Visit Diagnoses Not on filedocumented in this encounter
--- OUTSIDE RECORDS SUMMARY | 2024-09-08 09:10 | XMS_ITS | Encounter Summary ---
Author Organization [employer] Address [address] [facility] 7t [place] [address] Care Team Providers Care Chief Marketing Officer Name Role Phone Unavailable Primary Care Provider Unavailabl e Encounter Details Date Type Department Care Team (Latest Contact Info) Description 10/20/2020 Abstract [facility] CONVERSIONS Dental, Provider, DDS Social History Tobacco [...] Description 11/21/2024 10:00 AM EDT Office Visit [facility] ADULT DENTAL [address] [place] [address] Marisol Ledesma documented as of this encounter Visit Diagnoses Not on filedocumented in this encounter
--- OUTSIDE RECORDS SUMMARY | 2024-09-08 09:10 | XMS_ITS | Encounter Summary ---
Author Organization [employer] Address [address] [place] [address] 7t [place] [address] Care Team Providers Care Livestock Nutrition Territory Manager Name Role Phone Unavailable Primary Care Provider Unavailabl e Encounter Details Date Type Department Care Team (Late st Contact Info) Description 08/22/2024 Telephone [facility] ADULT DENTAL [address] [place] [address] Marisol Ledesma Social History Tobacco Use Types [...] * Telephone Encounter - Harriett Smith - 08/22/2024 1:29 PM EST Called patient to schedule a deep cleaning appointment but there was no answer so I left a voicemail. documented in this encounter Plan of Treatment Upcoming Encounters Date Type Department Care Team (Late st Contact Info) Description 11/21/2024 10:00 AM EDT Office Visit [facility] ADULT DENTAL [address] [place] [address] Marisol Ledesma documented as of this encounter Visit Diagnoses Not on filedocumented in this encounter
--- OUTSIDE RECORDS SUMMARY | 2024-09-08 09:11 | XMS_ITS | Clinical Summary ---
Author Organization [facility] Address [address] [place] [address] Care Team Providers Care Ward Nurse Name Role Phone Dougie Rodriguez MD Primary Care Provider [phone] Allergies Active Allergy Reactions Criticality Noted Date Comments Sulfa Antibiotics Other (see comments) 06/26/20 18 Medications Albuterol-Budeso nide 90-80 MCG/ACT aerosol Inhale 02/02/2022 Act becky acetaminophen (TYLENOL) 650 MG suppository Insert 650 mg into the rectum every 4 (four) hours if needed for mild pain Active Active Problems Problem Noted Date Diagnosed Date Stage 3a chronic kidney disease 04/26/2023 Chronic kidney disease 10/13/2020 Microalbuminuria 10/13/2020 S/P nephrectomy 09/12/2020 Nephrolithiasis 09/12/2020 Family History Medical History Relation Comments Diverticulitis Mother Relation Status Comments Mother Social History Tobacco Use Types Packs/Day Years Used Date Smoking Tobacco: Never Smokeless Tobacco: Never Sex and Gender Information Value Date Recorded Sex Assigned at Not on file Legal Sex Male 4:59 PM EST Gender Identity Not on file Sexual Orientation Not on file Last Filed Vital Signs Vital Sign Reading Time Taken Comments Blood Pressure 118/65 04/26/2023 3:39 PM EDT Pulse 85 04/26/2023 3:39 PM EDT Temperature - - Respiratory Rate - - Oxygen Saturation 96% 04/26/2023 3:39 PM EDT Inhaled Oxygen Concentration - - Weight 92.3 kg (203 lb 6.4 oz) 04/26/2023 3:39 P M EDT Height - - Body Mass Index - - Plan of Treatment Health Maintenance Due Date Last Done Comments Pneumococcal Vaccine: Pediat rics (0 to 5 Years) and At-Risk Patients (6 to 64 Years) (1 of 2 - PCV) 1974 Hepatitis B Vaccine (1 of 3 - 19+ 3-dose series) 09/05 Colorectal Cancer Screening: Annual FOBT 2017 Colorectal Cancer Screening: Colonoscopy 2017 Colorectal Cancer Screening: Sigmoidoscopy 2017 Influenza Vaccine (#1) 2024 Insurance ([id number]) ([id number]) Care Teams Ward Nurse Relationship Specialty Start Date End Date Dougie Rodriguez MD PCP - General Internal Medicine 03/25/23
--- OUTSIDE RECORDS SUMMARY | 2024-09-08 09:11 | XMS_ITS | Encounter Summary ---
Author Organization [facility] Address [address] [place] [address] Phone Care Team Providers Care Dance Master Name Role Phone Dougie Rodriguez MD Primary Care Provider Encounter Details Date Type Department Care Team ([facility] st Contact Info) Description 12/03/2020 Orders Only [facility] 85 [facility] 2 [place] [address] ProviderBrittnee MD [address] [place] [address] Social History Tobacco Use Types Packs/Day Years Used Date Smoking Tobacco: Never Smokeless Tobacco: Never Sex and Gender Information Value Date Recorded Sex Assigned at Not on file Legal Sex Male 4:59 PM EST Gender Identity Not on file Sexual Orientation Not on file documented as of this encounter Plan of Treatment Not on file documented as of this encounter Procedures Procedure Name Priority Date/Time Associated Diagnosis Comments EXT RESULT ENTRY Routine 12/03/2020 documented in this encounter Results * EXT RESULT ENTRY (12/03/2020) Historical Provider LAB BLOOD ORDERABLES Laure l Result documented in this encounter Visit Diagnoses Not on filedocumented in this encounter Care Teams Dance Master Relationship Specialty Start Date End Date Dougie Rodriguez MD PCP - General Internal Medicine 03/25/23 documented as of this encounter
[2024-09-08 09:13] VITALS: BP 112/80; PULSE 75; RESP 16; TEMP 36.8; O2SAT 98
--- NOTE | 2024-09-08 09:13 | MHC.OFFWIV ---
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 He reports that he started with head congestion a few weeks back, which developed into sinus congestion. He started with vertigo a few days ago, which had improved with heating his ear and using Flonase, but persists when he rolls over in bed. Review of Systems Const All systems reviewed & are unremarkable except as noted in HPI and below Physical Exam Vital Signs: Last Vital Signs Temp 98.2 F 09/08/24 09:13 Pulse 75 09/08/24 09:13 Resp 16 09/08/24 09:13 BP 112/80 09/08/24 09:13 Pulse Ox 98 09/08/24 09:13 Oxygen Delivery Method Room Air 09/08/24 09:13 BMI result Body Mass Index 30.0 Assessment & Plan Assessment & Plan (1) Otitis media: Code(s): H66.90 - Otitis media, unspecified, unspecified ear Qualifiers: Chronicity: acute Laterality: left Otitis media type: allergic (2) Labyrinthitis of left ear: Code(s): H83.02 - Labyrinthitis, left ear Plan Patient is a 54-year-old male comes to the walk-in clinic complaining of persistent left ear pain for the last 4 days, associated with intermittent vertigo symptoms after upper respiratory infection. Flu COVID and RSV results are pending. He has known neuro deficits. He has an apparent otitis media which is likely also what is giving him intermittent vestibular symptoms. He is already using Flonase and heating his left ear, which has started to improve symptoms, but the vertigo persists when he rolls over in bed, or moves his head quickly. We discussed that he needs to continue to move the fluid down the auditory canal, so he will continue with the Flonase and heating pad to his left ear. He can also do tragal tug, periauricular massages, and adequate fluid intake was advised. He can not tolerate NSAIDs or steroids due to kidney issues, so he will continue Tylenol as needed. I wrote him for a course of Augmentin, for the otitis media to the upper aspect of the TM that is starting to develop. I also wrote him for meclizine to use as needed for the vertigo. He knows to follow up if symptoms persist or worsen, or go to the emergency department with any worrisome symptoms. Orders: Orders SARS-CoV2/FLU/RSV Today J06.9 - Acute upper respiratory infection, unspecified Medications: New amoxicillin-pot clavulanate 875-125 mg 1 tab PO BID 14 tabs 0RF 7 days meclizine 25 mg PO TID PRN 20 tabs 0RF dizziness Coding Level of Care Code New Pt Level 4 (92472) Diagnoses Otitis media H66.90 Chronicity: acute Laterality: left Otitis media type: allergic Labyrinthitis of left ear H83.02
== END 2024-09-08 09:51 | disposition home or self-care (01) ==
LOC: HO.HMCWIC 09:07
PROVIDERS: PCP Internal Medicine; Visit Provider Physician Assistant Medical
DX: H66.90 Otitis media, unspecified, unspecified ear (principal); H83.02 Labyrinthitis, left ear

== ENCOUNTER 2024-09-08 11:31 | Outpatient (REF) | payer OTHER, SELFPAY ==
--- OUTSIDE RECORDS SUMMARY | 2024-09-08 11:33 | XMS_ITS | Encounter Summary ---
Author Organization [employer] Address [address] [facility] 7t [place] [address] Care Team Providers Care Tetryl Wringer Operator Name Role Phone Unavailable Primary Care Provider Unavailabl e Reason for Visit * Reason Onset Date Comments NDX lab update 04/19/2024 Encounter Details Date Type Department Care Team ([facility] Contact Info) Description 04/19/2024 Telephone [facility] ADULT DENTAL [address] [place], [place] [phone] Luis Nino DDS [address] [place], [place] [phone] NDX lab update Social History Tobacco Use [...] Message for Dr. Nino NDX lab in [place] called in to report that case was requested to be returned to office for 04/25. Lab will need more time. Delivery date expected to be for 04/30. documented in this encounter Plan of Treatment Upcoming Encounters Date Type Department Care Team (Late Contact Info) Description 11/21/2024 10:00 AM EDT Office Visit [facility] ADULT DENTAL [address] [place] [address] Marisol Ledesma documented as of this encounter Visit Diagnoses Not on filedocumented in this encounter
--- OUTSIDE RECORDS SUMMARY | 2024-09-08 11:33 | XMS_ITS | Encounter Summary ---
Author Organization [employer] Address [address] [facility] 7t [place] [address] Care Team Providers Care Baggage Checker Name Role Phone Unavailable Primary Care Provider Unavailabl e Encounter Details Date Type Department Care Team (Late st Contact Info) Description 08/03/2023 Abstract [facility] ADULT DENTAL [address] [place] [address] Luis Nino DDS [address] [place], [place] [phone] Social History Tobacco Use Types Packs/Day Years [...] Description 11/21/2024 10:00 AM EDT Office Visit [facility] ADULT DENTAL [address] [place] [address] Marisol Ledesma documented as of this encounter Visit Diagnoses Not on filedocumented in this encounter
--- OUTSIDE RECORDS SUMMARY | 2024-09-08 11:33 | XMS_ITS | Clinical Summary ---
Author Organization [employer] Address [address] [facility] 7t [place] [address] Care Team Providers Care Director Of Head Start Name Role Phone Unavailable Primary Care Provider [...] Type Department Care Team Description 08/30/2024 Telephone [facility] ADULT DENTAL [address] [place] [address] Marisol Ledesma 08/29/2024 Telephone [facility] ADULT DENTAL [address] [place] [address] Marisol Ledesma 08/22/2024 Telephone [facility] ADULT DENTAL [address] [place] [address] Marisol Ledesma from Last 3 Months Social [...] 11/21/2024 10:00 AM EDT Office Visit [facility] ADULT DENTAL [address] [place] [address] Marisol Ledesma Health Maintenance Due Date Last [...] Most Recently Relevant to Health Maintenance Insurance [facility] DENTAL [facility] DENTAL [facility]
--- OUTSIDE RECORDS SUMMARY | 2024-09-08 11:33 | XMS_ITS | Encounter Summary ---
Author Organization [employer] Address [address] [place] [address] 7t [place] [address] Care Team Providers Care Broadcast Transmitter Operator Name Role Phone Unavailable Primary Care Provider Unavailabl e Encounter Details Date Type Department Care Team (Late st Contact Info) Description 08/30/2024 Telephone [facility] ADULT DENTAL [address] [place] [address] Marisol Ledesma Social History Tobacco Use Types [...] Description 11/21/2024 10:00 AM EDT Office Visit [facility] ADULT DENTAL [address] [place] [address] Marisol Ledesma documented as of this encounter Visit Diagnoses Not on filedocumented in this encounter
--- OUTSIDE RECORDS SUMMARY | 2024-09-08 11:33 | XMS_ITS | Encounter Summary ---
Author Organization [employer] Address [address] [facility] 7t [place] [address] Care Team Providers Care Customer Advisor Specialist Name Role Phone Unavailable Primary Care Provider Unavailabl e Encounter Details Date Type Department Care Team (Latest Contact Info) Description 08/15/2018 Abstract [facility] CONVERSIONS Dental, Provider, DDS Social [...] Description 11/21/2024 10:00 AM EDT Office Visit [facility] ADULT DENTAL [address] [place] [address] Marisol Ledesma documented as of this encounter Visit Diagnoses Not on filedocumented in this encounter
--- OUTSIDE RECORDS SUMMARY | 2024-09-08 11:33 | XMS_ITS | Encounter Summary ---
Author Organization [employer] Address [address] [facility] 7t [place] [address] Care Team Providers Care Block Making Machine Operator Name Role Phone Unavailable Primary Care Provider Unavailabl e Reason for Visit * Reason Onset Date Comments Med Refill 06/13/2023 Encounter Details Date Type Department Care Team ([facility] st Contact Info) Description 06/13/2023 Telephone [facility] ADULT DENTAL [address] [place] [address] Luis Nino DDS [address] [place], [place] [phone] Med Refill Social History Tobacco Use Types [...] Description 11/21/2024 10:00 AM EDT Office Visit [facility] ADULT DENTAL [address] [place] [address] Marisol Ledesma documented as of this encounter Visit Diagnoses Not on filedocumented in this encounter
--- OUTSIDE RECORDS SUMMARY | 2024-09-08 11:33 | XMS_ITS | Encounter Summary ---
Author Organization [employer] Address [address] [facility] 7t [place] [address] Care Team Providers Care Prefitter Doors Name Role Phone Unavailable Primary Care Provider Unavailabl e Encounter Details Date Type Department Care Team (Latest Contact Info) Description 10/20/2020 Abstract [facility] CONVERSIONS Dental, Provider, DDS Social History Tobacco [...] Description 11/21/2024 10:00 AM EDT Office Visit [facility] ADULT DENTAL [address] [place] [address] Marisol Ledesma documented as of this encounter Visit Diagnoses Not on filedocumented in this encounter
--- OUTSIDE RECORDS SUMMARY | 2024-09-08 11:33 | XMS_ITS | Encounter Summary ---
Author Organization [employer] Address 75 [facility] 7t [place] [address] Care Team Providers Care Postal Service Window Clerk Name Role Phone Unavailable Primary Care Provider Unavailabl e Encounter Details Date Type Department Care Team (Latest Contact Info) Description 03/10/2022 Abstract [facility] CONVERSIONS Dental, Provider, DDS Social History [...] Description 11/21/2024 10:00 AM EDT Office Visit [facility] ADULT DENTAL [address] [place] [address] Marisol Ledesma documented as of this encounter Visit Diagnoses Not on filedocumented in this encounter
--- OUTSIDE RECORDS SUMMARY | 2024-09-08 11:33 | XMS_ITS | Encounter Summary ---
Author Organization [employer] Address [address] [facility] 7t [place] [address] Care Team Providers Care Fitness Technician Name Role Phone Unavailable Primary Care Provider Unavailabl e Reason for Visit * Reason Onset Date Comments medication 07/01/2023 Encounter Details Date Type Department Care Team (Late st Contact Info) Description 07/01/[address] [facility] ADULT DENTAL [address] [place] [address] Luis Nino DDS [address] [place] [address] medication Social History Tobacco Use Types Packs/Day [...] Description 11/21/2024 10:00 AM EDT Office Visit [facility] ADULT DENTAL [address] [place] [address] Marisol Ledesma documented as of this encounter Visit Diagnoses Not on filedocumented in this encounter
--- OUTSIDE RECORDS SUMMARY | 2024-09-08 11:33 | XMS_ITS | Encounter Summary ---
Author Organization [facility] Address [address] [place] [address] Care Team Providers Care Cable Placer Name Role Phone Dougie Rodriguez MD Primary Care Provider [phone] Reason for Visit * Reason Onset Date Comments Dizziness 09/07/2024 Earache 09/07/2024 Encounter Details Date Type Department Care Team (Late st Contact Info) Description 09/07/2024 Telephone Adult Medicine [facility] [address] [place] [address] Dougie Rodriguez MD [address] [place] [address] Dizziness; Earache Social History Tobacco Use Types [...] call back immediately. Pt to go to [facility] today * Bridgett Lewis - 09/07/2024 4:41 [...] traveled recently to another state outside of [place], [place], [place], [place], [place], [place]? no o If yes, did you quarantine [...] of accident/Injury: No If yes, gather 3rd green party insurance information Third Libertarian Information: not applicable PCP: Dougie Rodriguez MD Payor: [facility] MEDICARE / Plan: [facility] CARE / Product Type: *No Product type* / documented in this encounter Plan of Treatment Not on file documented as of this encounter Visit Diagnoses Not on filedocumented in this encounter Care Teams Cable Placer Relationship Specialty Start Date End Date Dougie Rodriguez MD [address] [place] [address] PCP - General Internal Medicine 02/22/11 documented as of this encounter
--- OUTSIDE RECORDS SUMMARY | 2024-09-08 11:34 | XMS_ITS | Encounter Summary ---
Author Organization [facility] Address [address] [place] [address] Phone Care Team Providers Care Senior Drafter Name Role Phone Dougie Rodriguez MD Primary Care Provider [phone] Encounter Details Date Type Department Care Team ([facility] st Contact Info) Description 12/03/2020 Orders Only [facility] 85 [facility] 2 [place] [address] ProviderBrittnee MD [address] [place] [address] Social History Tobacco Use Types Packs/Day [...] on filedocumented in this encounter Care Teams Senior Drafter Relationship Specialty Start Date End Date Dougie Rodriguez MD PCP - General Internal Medicine 03/25/23 documented as of this encounter
--- OUTSIDE RECORDS SUMMARY | 2024-09-08 11:34 | XMS_ITS | Encounter Summary ---
Author Organization [employer] Address [address] [place] [address] 7t [place] [address] Care Team Providers Care Batch Records Clerk Name Role Phone Unavailable Primary Care Provider Unavailabl e Encounter Details Date Type Department Care Team (Late st Contact Info) Description 08/22/2024 Telephone [facility] ADULT DENTAL [address] [place] [address] Marisol Ledesma Social History Tobacco Use Types [...] Description 11/21/2024 10:00 AM EDT Office Visit [facility] ADULT DENTAL [address] [place] [address] Marisol Ledesma documented as of this encounter Visit Diagnoses Not on filedocumented in this encounter
--- OUTSIDE RECORDS SUMMARY | 2024-09-08 11:34 | XMS_ITS | Encounter Summary ---
Author Organization [employer] Address 75 [facility] 7t [place] [address] Care Team Providers Care Instructional Consultant Name Role Phone Unavailable Primary Care Provider Unavailabl e Encounter Details Date Type Department Care Team (Late st Contact Info) Description 08/29/2024 Telephone [facility] ADULT DENTAL [address] [place] [address] Marisol Ledesma Social History Tobacco Use Types [...] Description 11/21/2024 10:00 AM EDT Office Visit [facility] ADULT DENTAL [address] [place] [address] Marisol Ledesma documented as of this encounter Visit Diagnoses Not on filedocumented in this encounter
--- OUTSIDE RECORDS SUMMARY | 2024-09-08 11:34 | XMS_ITS | Clinical Summary ---
Author Organization [facility] Address [address] [place] [address] Care Team Providers Care Overnight Caregiver Name Role Phone Dougie Rodriguez MD Primary Care Provider [phone] Allergies Active Allergy Reactions Criticality Noted Date [...] (#1) 2024 Insurance (A2793) ([id number]) Care Teams Overnight Caregiver Relationship Specialty Start Date End Date Dougie Rodriguez MD PCP - General Internal Medicine 03/25/23
[2024-09-08 12:57] LABS: Influenza A PCR NEGATIVE (Negative); Influenza B PCR NEGATIVE (Negative); Resp Syncy Virus RNA Qual PCR NEGATIVE (Negative); SARS COV2 PCR INHOUSE NEGATIVE (Negative)
== END 2024-09-08 11:32 | disposition home or self-care (01) ==
LOC: HO.LNP 11:31
PROVIDERS: PCP Internal Medicine; Visit Provider Physician Assistant Medical
DX: H65.112 Acute and subacute allergic otitis media (mucoid) (sanguinous) (serous), left ear (principal); H83.02 Labyrinthitis, left ear; J06.9 Acute upper respiratory infection, unspecified
CPT/HCPCS: 0241U